=== PATIENT | female | born 1930 ===

== ENCOUNTER 2017-11-24 17:01 | Emergency (ER) | payer MEDICARE ==
[2017-11-24 17:07] VITALS: BP 137/92; PULSE 95; RESP 20; TEMP 98.4; O2SAT 96
[2017-11-24] MEDS ORDERED: Tdap Vaccine 0.5 ml Vial (10-64 yrs) IM ONE (17:32)
[2017-11-24 18:17] LABS: ALB/GLOB RATIO 1.2 (1.0-2.1); ALBUMIN 4.1 g/dL (3.5-5.0); ALT/SGPT 31 U/L (9-52); AST/SGOT 34 U/L (14-36); BLOOD UREA NITROGEN 24 mg/dl (7-17); CALCIUM 9.5 mg/dL (8.4-10.2); GFR AFRICAN-AMERICAN > 60; GFR NON-AFRICAN AMERICAN 59
[2017-11-24 18:22] LABS: INR 1.1 (0.9-1.2); PARTIAL THROMBOPLASTIN TIME 26.7 Seconds (25.6-37.1)
[2017-11-24 18:30] LABS: BASO # 0.1 K/uL (0.0-0.2); BASO % 0.6 % (0.0-2.0); EOS # 0.1 K/uL (0.0-0.7); EOS % 1.4 % (0.0-4.0); HEMOGLOBIN 12.7 g/dL (12.0-16.0); LYMPH # 1.9 K/uL (1.0-4.3); LYMPH % 21.9 % (20.0-40.0); MEAN CELL VOLUME 98.5 fl (81.0-99.0); MEAN CORPUSCULAR HEMOGLOBIN 33.3 pg (27.0-31.0); MEAN CORPUSCULAR HGB CONC 33.8 g/dL (33.0-37.0); MEAN PLATELET VOLUME 9.8 fl (7.2-11.7); MONO # 0.9 K/uL (0.0-0.8); MONO % 10.1 % (0.0-10.0); NEUT # 5.7 K/uL (1.8-7.0); NRBC % 0.1 % (0.0-0.0); RBC 3.83 Mil/uL (3.80-5.20); RED CELL DISTRIBUTION WIDTH 13.4 % (11.5-14.5); WHITE BLOOD COUNT 8.6 K/uL (4.8-10.8)
--- NOTE | 2017-11-24 18:33 | ED PDOC ---
HPI: Trauma/Fall - HPI Time Seen by Provider: 11/24/17 17:09 Chief Complaint (Nursing): Trauma Chief Complaint (Provider): Fall and Traumatic Injuries History Per: Patient History/Exam Limitations: no limitations Onset/Duration Of Symptoms: Mins Injury Occurred (Timing): Today @ Severity: None Associated Symptoms: denies: Dizziness, LOC, Seizure Additional Complaint(s): 87 year old female with a past medical history of hypothyroidism and osteoporosis presents to the emergency room post fall with injuries to her right forehead, right hand, left knee, neck and right shoulder. The patient reports that while walking she tripped on an uneven sidewalk causing injury. Denies loss of consciousness, nausea, vomiting, weakness and blurry vision. PMD: Dr. Magallon - Fall Fall:Prior To Injury: Tripped Past Medical History Reviewed: Historical Data, Nursing Documentation, Vital Signs Vital Signs: Last Vital Signs Temp 98.4 F 11/24/17 17:04 Pulse 95 H 11/24/17 17:04 Resp 20 11/24/17 17:04 BP 137/92 H 11/24/17 17:04 Pulse Ox 96 11/24/17 17:04 - Medical History PMH: Asthma, Gastritis, Hypothyroidism, Osteoporosis - Surgical History Surgical History: No Surg Hx - Family History Family History: States: Unknown Family Hx - Social History Current smoker - smoking cessation education provided: No Alcohol: None Drugs: Denies - Home Medications Home Medications: Ambulatory Orders Medication Instructions Recorded Albuterol Sulfate [Proair Hfa] 0.09 mg IH Q4 03/30/15 Clindamycin [Cleocin] 300 mg PO TID #21 cap 03/30/15 Dexlansoprazole [Dexilant] 60 mg PO DAILY 03/30/15 Levothyroxine Sodium 0.05 mg PO DAILY 03/30/15 [Levothyroxine] Mometasone/Formoterol [Dulera] 1 jimmy IH 03/30/15 Montelukast [Singulair] 10 mg PO DAILY 03/30/15 Lidocaine 5% [Lidoderm] 1 ea TD DAILY PRN #20 patch 11/24/17 - Allergies Allergies/Adverse Reactions: Allergies Allergy/AdvReac Type Severity Reaction Status Date / Time No Known Allergies Allergy Verified 11/24/17 17:04 Review of Systems ROS Statement: Except As Marked, All Systems Reviewed And Found Negative Cardiovascular: Negative for: Chest Pain Gastrointestinal: Negative for: Abdominal Pain Musculoskeletal: Positive for: Neck Pain, Shoulder Pain (right), Hand Pain ( right), Other (left knee pain) Skin: Positive for: Lesions Physical Exam - Reviewed Nursing Documentation Reviewed: Yes Vital Signs Reviewed: Yes - Physical Exam Appears: Positive for: Non-toxic, In Acute Distress (mild painful) Head Exam: Positive for: NORMAL INSPECTION, NORMOCEPHALIC. Negative for: ATRAUMATIC (1.5cm right lateral eyebrow laceration; hemostatic with periorbital hematoma and ecchymosis ) Eye Exam: Positive for: Normal appearance, EOMI, PERRL. Negative for: Nystagmus Neck: Positive for: Painless ROM, Supple. Negative for: Normal (Diffuse tenderness to palpation of neck no discreet yinka tenderness, step off crepitus , full ROM) Cardiovascular/Chest: Positive for: Tachycardia (w/ regular rhythm) Respiratory: Positive for: Normal Breath Sounds. Negative for: Respiratory Distress Gastrointestinal/Abdominal: Positive for: Soft. Negative for: Tenderness Back: Positive for: Normal Inspection. Negative for: Decreased ROM Extremity: Positive for: Tenderness (Rt shoulder tenderness and mild edema and subtle ecchymosis to anterior shoulder with full ROM;), Swelling (Left knee: anterior edema and superficial abrasion full ROM, no laxity, negative drawer test), Other (Superficial abrasion to dorsum of right hand full ROM in all nerve distribution; light touch intact.). Negative for: Deformity Lymphatic: Negative for: Adenopathy Neurologic/Psych: Positive for: Alert (AAO x3), Oriented, Mood/Affect (anxious mood; anxious affect). Negative for: Motor/Sensory Deficits, Aphasia, Facial Droop - Laboratory Results Result Diagrams: 11/24/17 17:57 11/24/17 17:57 - ECG O2 Sat by Pulse Oximetry: 96 Medical Decision Making Medical Decision Makin Initial Impression 87 y/o female presenting with fall with multiple contusions and abrasions as well as head injury Initial Plan: * Type and Screen * CT Cervical Spine * CT head w/o Contrast * CT Maxillofacial w/o Contrast * Magnesium * Phosphorous * CBC * Partial Thromboplastin * Prothrombin time * RAD Knee 3 views lft * Adacel (10-64 years) 0.5ml IM * Tylenol 975 mg PO * RAD right hand * RAD right shoulder * Reevaluation 1921 EXAM: CT Head Without Intravenous Contrast CLINICAL HISTORY: 87 years old, female; Injury or trauma; Fall; Initial encounter; Bleeding / hemorrhage and wound, open; Eye and forehead and other: Eye brow; Right; Without residual foreign body ; Additional info: Fall head injury TECHNIQUE: Axial computed tomography images of the head/brain without intravenous contrast. All CT scans at this facility use one or more dose reduction techniques, viz.: automated exposure control; ma/kV adjustment per patient size (including targeted exams where dose is matched to indication; i.e. head); or iterative reconstruction technique. Coronal and sagittal reformatted images were created and reviewed. COMPARISON: No relevant prior studies available. FINDINGS: Brain: Atrophy. Bilateral white matter hypoattenuation most consistent with chronic ischemic small vessel changes. Vascular calcification. No hemorrhage. No edema. Ventricles: No hydrocephalus. Bones: Skull is intact. Soft tissues: Right frontal/facial soft tissue injury/hematoma. Correlate clinically. Sinuses: Mild paranasal sinus disease. Mastoid air cells: No mastoid effusion. IMPRESSION: No CT evidence of acute intracranial abnormality. Right frontal/facial soft tissue injury/hematoma. Correlate clinically. Chronic changes as above. 1923 EXAM: CT Maxillofacial Without Intravenous Contrast CLINICAL HISTORY: 87 years old, female; Injury or trauma; Fall; Initial encounter; Bleeding/ hemorrhage and blunt trauma (contusions or hematomas); Orbit/periorbital; Right; Forehead; Additional info: Fall head injury right orbital swelling TECHNIQUE: Axial computed tomography images of the face without intravenous contrast. All CT scans at this facility use one or more dose reduction techniques, viz.: automated exposure control; ma/kV adjustment per patient size (including targeted exams where dose is matched to indication; i.e. head); or iterative reconstruction technique. Coronal and sagittal reformatted images were created and reviewed. COMPARISON: No relevant prior studies available. FINDINGS: Bones/joints: No acute fracture. Soft tissues: Right frontal/facial soft tissue injury/hematoma. Correlate clinically. Orbits: No acute abnormality as visualized. Sinuses: Mild ethmoid sinus disease. No air-fluid levels. IMPRESSION: Negative for acute fracture. 1927 EXAM: CT Cervical Spine Without Intravenous Contrast CLINICAL HISTORY: 87 years old, female; Injury or trauma; Fall; Initial encounter; Blunt trauma; Additional info: Fall head injury neck pain TECHNIQUE: Axial computed tomography images of the cervical spine without intravenous contrast. All CT scans at this facility use one or more dose reduction techniques, viz.: automated exposure control; ma/kV adjustment per patient size (including targeted exams where dose is matched to indication; i.e. head); or iterative reconstruction technique. Coronal and sagittal reformatted images were created and reviewed. COMPARISON: No relevant prior studies available. FINDINGS: Vertebrae/discs/spinal canal/neural foramina: No acute fracture. Heterogeneous appearance to bones, may represent osteopenia/osteoporosis. Cannot exclude other abnormality. Multilevel degenerative changes with degenerative disc disease and disc osteophyte formation. No severe spinal canal stenosis. Soft tissues: Carotid calcification. Lung apices: Apical scarring. IMPRESSION: Negative for acute fracture. Please see additional details/findings as above. Some of the above findings may warrant followup evaluation. 1932 EXAM: XR Right Shoulder Complete, 2 or More Views CLINICAL HISTORY: 87 years old, female; Injury or trauma; Fall; Initial encounter; Blunt trauma ( contusions or hematomas; Shoulder; Right; Additional info: Fall shoulder pain TECHNIQUE: Two or more views of the right shoulder. COMPARISON: No relevant prior studies available. FINDINGS: Bones/joints: High riding right humeral head. Advanced degenerative changes. Concern for right humeral head/neck fracture. Recommend followup CT for further evaluation. IMPRESSION: High riding right humeral head. Advanced degenerative changes. Concern for right humeral head/neck fracture. Recommend followup CT for further evaluation. 2201 EXAM: CT Right Upper Extremity Without Intravenous Contrast, Shoulder CLINICAL HISTORY: 87 years old, female; Injury or trauma; Fall; Initial encounter; Blunt trauma ( contusions or hematomas; Shoulder; Right; Additional info: Right shoulder pain R/O fracture TECHNIQUE: Axial computed tomography images of the right shoulder without intravenous contrast. All CT scans at this facility use one or more dose reduction techniques, viz.: automated exposure control; ma/kV adjustment per patient size (including targeted exams where dose is matched to indication; i.e. head); or iterative reconstruction technique. Coronal and sagittal reformatted images were created and reviewed. COMPARISON: No relevant prior studies available. FINDINGS: Bones/joints: Advanced degenerative changes with decreased joint space and significant osteophyte formation involving glenohumeral and acromioclavicular joint spaces. Appearance on plain film due to advanced degenerative changes. No acute fracture. No dislocation. IMPRESSION: Advanced degenerative changes. Negative for acute fracture DW patient and family at length findings and plan of care. Possibility of rotator cuff injury not excluded. Mandatory ortho follow up this week. Wound check in 48 hours and suture removal in 4-5 days. Close home observation due to age and head injury. Documented by Iris Mann acting as a scribe for Cecily Kinsey MD. All medical record entries made by the Scribe were at my direction and personally dictated by me. I have reviewed the chart and agree that the record accurately reflects my personal performance of the history, physical exam, medical decision making, and the department course for this patient. I have also personally directed, reviewed, and agree with the discharge instructions and disposition. Procedures - Laceration/Wound Repair Right Upper Face Wound Length (cm): 2 Wound's Depth, Shape: superficial, linear, contused tissue Wound Explored: clean Irrigated w/ Saline (ccs): 250 Betadine Prep?: Yes Anesthesia: 1% Lidocaine Volume Anesthetic (ccs): 5 Wound Repaired With: Sutures Suture Size/Type: 5:0, proline Number of Sutures: 5 Layer Closure?: No Wound Complexity: Simple Sterile Dressing Applied?: Yes (with bacitracin) Progress: tolerated procedure well Disposition - Clinical Impression Clinical Impression: Fall, Multiple contusions, Shoulder injury, Head injury, Laceration of forehead , Knee injury, Abrasions of multiple sites - Disposition Referrals: Steven Magallon [Staff Provider] - (WOUND CHECK AND REEVALUATION IN 48 HOURS SUTURE REMOVAL IN 4-5 DAYS) Rell Alamo III, MD [Staff Provider] - Disposition: Routine/Home Disposition Time: 22:15 Condition: IMPROVED Prescriptions: Lidocaine 5% [Lidoderm] 1 ea TD DAILY PRN #20 patch PRN Reason: PAIN Instructions: Taking Care of Bruises, Preventing Falls in the Older Adult, Laceration Repair With Stitches (DC), Minor Head Injury, Shoulder Sprain (DC), Skin Abrasions (DC) Forms: [facility] ([place]) - POA Present On Arrival: Falls Or Trauma
--- NOTE | 2017-11-24 19:23 | CT ---
EXAM: CT Head Without Intravenous Contrast CLINICAL HISTORY: 87 years old, female; Injury or trauma; Fall; Initial encounter; Bleeding / hemorrhage and wound, open; Eye and forehead and other: Eye brow; Right; Without residual foreign body; Additional info: Fall head injury TECHNIQUE: Axial computed tomography images of the head/brain without intravenous contrast. All CT scans at this facility use one or more dose reduction techniques, viz.: automated exposure control; ma/kV adjustment per patient size (including targeted exams where dose is matched to indication; i.e. head); or iterative reconstruction technique. Coronal and sagittal reformatted images were created and reviewed. COMPARISON: No relevant prior studies available. FINDINGS: Brain: Atrophy. Bilateral white matter hypoattenuation most consistent with chronic ischemic small vessel changes. Vascular calcification. No hemorrhage. No edema. Ventricles: No hydrocephalus. Bones: Skull is intact. Soft tissues: Right frontal/facial soft tissue injury/hematoma. Correlate clinically. Sinuses: Mild paranasal sinus disease. Mastoid air cells: No mastoid effusion. IMPRESSION: No CT evidence of acute intracranial abnormality. Right frontal/facial soft tissue injury/hematoma. Correlate clinically. Chronic changes as above.
--- NOTE | 2017-11-24 19:24 | CT ---
EXAM: CT Maxillofacial Without Intravenous Contrast CLINICAL HISTORY: 87 years old, female; Injury or trauma; Fall; Initial encounter; Bleeding/hemorrhage and blunt trauma (contusions or hematomas); Orbit/periorbital; Right; Forehead; Additional info: Fall head injury right orbital swelling TECHNIQUE: Axial computed tomography images of the face without intravenous contrast. All CT scans at this facility use one or more dose reduction techniques, viz.: automated exposure control; ma/kV adjustment per patient size (including targeted exams where dose is matched to indication; i.e. head); or iterative reconstruction technique. Coronal and sagittal reformatted images were created and reviewed. COMPARISON: No relevant prior studies available. FINDINGS: Bones/joints: No acute fracture. Soft tissues: Right frontal/facial soft tissue injury/hematoma. Correlate clinically. Orbits: No acute abnormality as visualized. Sinuses: Mild ethmoid sinus disease. No air-fluid levels. IMPRESSION: Negative for acute fracture.
--- NOTE | 2017-11-24 19:29 | CT ---
EXAM: CT Cervical Spine Without Intravenous Contrast CLINICAL HISTORY: 87 years old, female; Injury or trauma; Fall; Initial encounter; Blunt trauma; Additional info: Fall head injury neck pain TECHNIQUE: Axial computed tomography images of the cervical spine without intravenous contrast. All CT scans at this facility use one or more dose reduction techniques, viz.: automated exposure control; ma/kV adjustment per patient size (including targeted exams where dose is matched to indication; i.e. head); or iterative reconstruction technique. Coronal and sagittal reformatted images were created and reviewed. COMPARISON: No relevant prior studies available. FINDINGS: Vertebrae/discs/spinal canal/neural foramina: No acute fracture. Heterogeneous appearance to bones, may represent osteopenia/osteoporosis. Cannot exclude other abnormality. Multilevel degenerative changes with degenerative disc disease and disc osteophyte formation. No severe spinal canal stenosis. Soft tissues: Carotid calcification. Lung apices: Apical scarring. IMPRESSION: Negative for acute fracture. Please see additional details/findings as above. Some of the above findings may warrant followup evaluation.
[2017-11-24] MEDS ORDERED: Povidone Iodine Oint 10% Foilpak UD ONE (19:33)
[2017-11-24] MEDS ORDERED: Povidone Iodine Topical 10% Sol ONE (19:33)
--- NOTE | 2017-11-24 19:33 | RAD ---
EXAM: XR Right Shoulder Complete, 2 or More Views CLINICAL HISTORY: 87 years old, female; Injury or trauma; Fall; Initial encounter; Blunt trauma (contusions or hematomas; Shoulder; Right; Additional info: Fall shoulder pain TECHNIQUE: Two or more views of the right shoulder. COMPARISON: No relevant prior studies available. FINDINGS: Bones/joints: High riding right humeral head. Advanced degenerative changes. Concern for right humeral head/neck fracture. Recommend followup CT for further evaluation. IMPRESSION: High riding right humeral head. Advanced degenerative changes. Concern for right humeral head/neck fracture. Recommend followup CT for further evaluation.
[2017-11-24] MEDS ORDERED: LIDOCAINE 2% 10ML 20 MG/ML VIAL IJ STA (19:51)
[2017-11-24] MEDS ORDERED: Lidocaine 5% Patch TD STA (21:46)
--- NOTE | 2017-11-25 08:20 | RAD ---
PROCEDURE: Right Hand Radiographs. HISTORY: fall hand pain COMPARISON: None. FINDINGS: BONES: Osteopenia. No acute fracture. JOINTS: Degenerative changes. Chondrocalcinosis within the ulnar carpal joint space. SOFT TISSUES: Normal. OTHER FINDINGS: None. IMPRESSION: No demonstrated fracture or dislocation. Chondrocalcinosis within the ulnocarpal joint space, likely degenerative.
--- NOTE | 2017-11-25 08:21 | RAD ---
PROCEDURE: Left Knee Radiographs. HISTORY: Pain. COMPARISON: None. FINDINGS: BONES: No acute fracture. JOINTS: Unremarkable. JOINT EFFUSION: None. OTHER FINDINGS: None. IMPRESSION: No demonstrated fracture or dislocation.
--- NOTE | 2017-11-26 09:05 | CT ---
CT right shoulder History: Shoulder pain. Comparison: None available. Technique: Multiple contiguous axial images were performed through the right shoulder without the use of intravenous contrast. Subsequently, sagittal and coronal reformatted images were obtained. This CT exam was performed using one or more of the following dose reduction techniques: Automated exposure control, adjustment of the mA and/or kV according to patient size, and/or use of iterative reconstruction technique. Findings: Severe degenerative changes of the right shoulder with prominent narrowing at the glenohumeral joint space as well as superior subluxation of the humerus in relationship to the bony glenoid with pseudoarticulation the undersurface of distal acromion. Prominent osteophytosis of the humeral head medially. Small glenohumeral joint effusion. Suggestion of loose osteochondral bodies within the glenohumeral joint space measuring up to 9 millimeters. Severe acromioclavicular joint space degenerative changes with joint space narrowing, subchondral edema, and bony hypertrophy. Incidentally noted is a focal thickening at the right lung apex. 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 If pain persists, consider MRI. These findings were preliminarily reported at 10:02 p.m. on 11/24/[address] Elizabeth Irby from [facility].
== END 2017-11-24 22:47 | disposition home or self-care (01) ==
LOC: H.ER 17:01
DX: S40.011A Contusion of right shoulder, initial encounter (principal); S19.9XXA Unspecified injury of neck, initial encounter; S01.81XA Laceration without foreign body of other part of head, initial encounter; S89.92XA Unspecified injury of left lower leg, initial encounter; W01.0XXA Fall on same level from slipping, tripping and stumbling without subsequent striking against object, initial encounter; Y93.01 Activity, walking, marching and hiking; Y92.480 Sidewalk as the place of occurrence of the external cause; E03.9 Hypothyroidism, unspecified; J45.909 Unspecified asthma, uncomplicated; M81.0 Age-related osteoporosis without current pathological fracture
CPT/HCPCS: 12011; 70450; 70486; 72125; 73030; 73130; 73200; 73562; 80053; 83735; 84100; 85025; 85610; 85730; 86850; 86900; 90471; 90715; 96374; 99285; J1885